=== PATIENT | female | born 1985 | race Caucasian/White ===

== ENCOUNTER 2016-12-18 09:19 | Emergency (ER) | payer OTHER ==
[~2016-12-18] VITALS: Ht 165.1 cm; Wt 104.5 kg
[~2016-12-18 09:19] MED LIST: ALBU18HF INH; ALBU2.5V4 IH; ARIP2TAB10 PO; ESTR1TAB24 PO; HYDR-4003 PO; HYDR12.55 PO; IBUP-1827 PO; IMI100 PO; LAMO200T2 PO; METH-313 PO; MONT10TA20 PO; OMEP-113 PO; OXYC-245 PO; PRAZ1CAP2 PO; SUMA4KIT SQ; SYMINH IH; TOPI25TA26 PO; TRAM50TA2 PO; TRAZ-118 PO
[2016-12-18 09:20] VITALS: BP 123/85; PULSE 83; RESP 18; O2SAT 95
--- NOTE | 2016-12-18 09:35 | ED.REPORT ---
HPI-Abd Pain F Under 40 Date of Service Dec 18, 2016 ED Provider: Aayush Lofton MD The patient is a 31 year old female with history of chronic back pain, chronic pelvic pain, seizures on lamotrigine and Topamax, asthma, and syncope related to hypotension, who presents to the emergency department complaining of severe right flank pain that began 1 week ago. Her pain has been intermittent since onset. Her pain has worsened since onset. She has also noticed "sharp" suprapubic abdominal pain and diaphoresis. She has not experienced similar symptoms in the past. She denies fever, chills, dysuria, hematuria, vaginal bleeding, bloody stools, bloody emesis, constipation or diarrhea. She denies history of kidney stones. She also mentions that she has been sick for the last year. She has experienced myalgias, difficulty sleeping, nausea, vomiting, nasal congestion, cough with green sputum, and difficulty breathing. She reports she was around mold a lot. She has been in the hospital 4 times in the last 8 months. She was recently seen by her regular doctor who did not want to do any blood work. She was last treated with antibiotics about 4 months ago. Nursing Notes Stated Complaint: SICK/STOMACH,VAGINA,BACK PAIN Chief Complaint: Female Abdominal Pain Nursing Notes Reviewed: Yes Allergies: Coded Allergies: baclofen (Verified Allergy, Intermediate, Nausea,Vomiting, 11/12/15) Scheduled Albuterol HFA (Proair HFA) 8.5 Gm Hfa.aer.ad 2 PUFFS INHALATION Q4H Albuterol Neb Soln (Albuterol Neb Soln) 2.5 Mg/3 Ml Vial.neb 3 MG IH TID Aripiprazole (Abilify) 2 Mg Tablet 0 PO DAILY Azithromycin (Zithromax (Z-Jamaal)) 250 Mg Tablet 250 MG PO DIRECTED Take two tablets by mouth on day 1, then take one tablet daily on days 2 through 5. Budesonide/Formoterol 160-4.5 mcg Inh (Symbicort 160-4.5 mcg Inh) 1 Puff Inha 1 PUFF IH BID Estradiol (Estradiol) 1 Mg Tablet 1.5 MG PO DAILY Hydrochlorothiazide (Hydrochlorothiazide) 12.5 Mg Tablet 12.5 MG PO DAILY Lamotrigine (Lamotrigine) 200 Mg Tablet 200 MG PO HS Montelukast (Singulair) 10 Mg Tablet 10 MG PO HS Omeprazole Magnesium (Omeprazole) 20 Mg Capsule.dr 20 MG PO BIDLS Prazosin (Prazosin) 1 Mg Capsule 0 PO HS Prednisone (PredniSONE) 20 Mg Tablet 40 MG PO DAILY Topiramate (Topamax) 25 Mg Tablet 100 MG PO DAILY Trazodone (Trazodone) 100 Mg Tablet 200 MG PO HS Scheduled PRN Albuterol Sulfate (Ventolin HFA Inhaler) 200 Puff/18 Gm Inhaler 1 PUFF INH Q4 PRN PRN For Wheezing Hydrocodone-Acetaminophen 5-325 mg (Hydrocodone-Acetaminophen 5-325 mg) 1 Each Tablet 1 TABLET PO Q4H PRN PRN For Pain Ibuprofen (Ibuprofen) 600 Mg Tablet 600 MG PO TIDWM PRN PRN For Pain Methocarbamol (Robaxin-750) 750 Mg Tablet 750 MG PO QID PRN PRN For Spasm Oxycodone HCl/Acetaminophen (Percocet 10-325 mg Tablet) 1 Each Tablet 1 EACH PO Q6HR PRN PRN For Pain Sumatriptan (Imitrex) 100 Mg Tablet 100 MG PO PRN PRN PRN HEADACHE Tramadol (Tramadol) 50 Mg Tablet 50 MG PO Q6HR PRN PRN For Pain Miscellaneous Medications Sumatriptan Succinate (Imitrex) 4 Mg/0.5 Ml Cartridge 4 MG SQ General Time Seen by MD: 09:28 Chief Complaint Flank pain right Hx Obtained From: Patient Arrived By: Walk-in Sudden in Onset?: No Onset Occurred: 1 week ago Symptom Duration: Since onset Progression since Onset: Constant, Gradually worsening Location: : Flank right: Suprapubic Quality: Painful, Sharp Severity: Current: Severe Severity: Maximum: Severe Recent Healthcare: No recent doctor visit, No recent hospitalization Similar Sx Previous: No Risk Factors PERC Rule All PERC criteria "No", PERC rule satisfied Past Medical History Past Medical History Asthma Chronic back pain Hx of seizures, currently on medication Hx of syncopal episodes related to low blood pressure Chronic pelvic pain Abnormal uterine bleeding Depression Past Surgical History Hysterectomy 10/29/14 for abnormal vaginal bleeding and pain since she started her menses. BSL Cystoscopy of bladder Family History CHF. Her grandmother had a pacemaker placed in her 20s. Smoking History Current Some Day Smoker, Light Tobacco Smoker Social History Alcohol Use: Denies alcohol use Drug Use: Denies drug use Other Social History: Good social support, , Local resident Ambulatory Status Independent Review of Systems Review of Systems Note: +difficulty sleeping Respiratory: Reports: Prod cough, green, Shortness of breath GI: Reports: Abdominal pain, Nausea, Vomiting, Denies: Bloody/tarry stool, Constipation, Diarrhea, Hematemesis, Hematochezia , Melena Female: Reports: Flank pain, Denies: Dysuria, Hematuria, Vaginal bleeding - abnl Musculoskeletal: Reports: Extremity swelling (chronic), Myalgia Complete sys rev & neg: except as marked. Ears / Nose / Throat: Reports: Nasal congestion Skin: Reports Diaphoresis Physical Exam Initial Vital Signs Vital Signs (First) Date Time Temp Pulse Resp B/P Pulse Ox O2 Delivery O2 Flow Rate FiO2 12/18/16 09:20 36.3 83 18 123/85 95 Room Air Initial VS: Reviewed Head / Eyes: Atraumatic, Normocephalic, PERRL ENT: Mucous membranes moist, Conjunctiva normal, No scleral icterus Neck: Supple, Non-tender, Full range of motion Lymphatic: No lymphadenopathy Extremities: Vascular intact, Neuro intact, No swelling, No tenderness Skin: Warm, Dry, No cyanosis Neurologic: Alert, Oriented, Nonfocal Psychiatric: Mood/affect normal, Behavior normal, Normal thought content General/Constitutional: Awake, Alert, Cooperative Respiratory / Chest: Breath sounds = bilat, No respiratory distress, No rales, No rhonchi Wheezing / Retractions: Positive: Wheezing mild (diffuse) Cardiovascular: Heart rate NL, Regular rhythm, Heart sounds NL, No gallop, No murmurs, No rubs, Peripheral circulation NL Abdomen: Soft, No guarding, No rebound, BS normoactive, No distention, No hernia, No palpable mass, No pulsatile mass Tenderness/Guarding/Rebound: Positive: Tender RUQ... Back: No midline vertebral tend, No CVA tenderness Diffuse back pain Interpretation & Diagnostics Interpretation & Diagnostics: Abdominal US: negative Lab Results Interpretation Result Diagram: 12/18/16 1110 12/18/16 1110 Test 12/18/16 11:10 White Blood Count 5.6th/mm3 (3.8-10.1) Red Blood Count 4.25mil/mm3 (3.90-5.20) Hemoglobin 13.0g/dL (12.0-15.6) Hematocrit 39.5% (35.0-46.0) Mean Corpuscular Volume 92.9fL (81-100) Mean Corpuscular Hemoglobin 30.6pg (27.0-35.0) Mean Corpuscular Hemoglobin Concent 32.9% (32.0-37.0) Red Cell Distribution Width 12.8% (12.3-15.4) Platelet Count 271bil/L (150-400) Neutrophils (%) (Auto) 41.9% (40-74) Lymphocytes (%) (Auto) 50.1% (14-46) Monocytes (%) (Auto) 3.7% (4-12) Eosinophils (%) (Auto) 3.4% (0-5) Basophils (%) (Auto) 0.9% (0-3) Hold Blue Top Tube Received (Received) Sodium Level 140mEq/L (134-144) Potassium Level 4.7mEq/L (3.5-5.2) Chloride Level 105mEq/L (97-108) Carbon Dioxide Level 21mmol/L (18-29) Blood Urea Nitrogen 11mg/dL (6-20) Creatinine 0.41mg/dL (0.57-1.00) Estimat Glomerular Filtration Rate 256mL/min (>59) Glucose Level 93mg/dL (60-99) Calcium Level 9.2mg/dL (8.5-10.1) Magnesium Level 1.8mg/dL (1.6-2.6) Total Bilirubin 0.3mg/dL (0.0-1.2) Aspartate Amino Transf (AST/SGOT) 18U/L (0-50) Alanine Aminotransferase (ALT/SGPT) 15U/L (0-32) Alkaline Phosphatase 78U/L (25-150) Total Protein 6.2g/dL (6.4-8.4) Albumin 4.0g/dL (3.4-5.0) Lipase 84U/L (13-60) Hold Red Top Tube Received (Received) Hold Cortes Top Tube Received (Received) ECG Interpretation ECG Interpretation: Sinus rhythm with a rate of [address] T changes Time: 10:50 Interpreted by: ED physician X-Ray Chest Interpretation View: Portable, 1 view Interpretation / Wet Read by: Wet read ED physician NL X-Ray Chest Findings: No infiltrate, No acute disease Re-Eval/Medical Decision Med Decision/Clinical Course Med Decision/Clinical Course: 31-year-old female presenting complaining of cough times month and abdominal pain times months. Coughing up green sputum. I will send stable. Mild right upper quadrant tenderness. No peritoneal signs. Labs are stable. Urine negative for infection or blood. Right upper quadrant ultrasound is normal with no gallstones or other acute pathology. Chest x-ray no pneumonia on my wet read. We will treat for bronchitis with steroids and Z-Jamaal and inhaler as needed. Return precautions regarding abdominal pain that resolved without intervention here.. Recommend primary doctor 2-3 days. Source of Hx: Old records Re-Evaluation/Progress : Time of Eval: 12:23 Re-Evaluation/Progress Note: Discussed results, diagnosis, and plan for discharge. All questions were addressed. Counseled Regarding: Diagnosis, Lab results, Need for follow-up, When/why to return to ED Discharge & Departure Primary Impression: Bronchitis Additional Impression: Abdominal pain Disposition: Home Discharge Condition All VS Reviewed: Yes Condition: Stable Patient Instructions: Acute Bronchitis (ED) Additional Instructions: Thank you for entrusting us with your care today. Your labs, chest x-ray, and abdominal ultrasound today are reassuring. Take the antibiotics, steroids, and the inhaler as prescribed. Followup with your regular doctor at the end of this week or early next week for re-evaluation. Please return to the emergency department for any worsening abdominal pain, fevers, vomiting, or other concerning symptoms. Referrals: Darryn Shay MD (PCP) [facility] Attestation Portions of this note were transcribed by Afia Templeton. I, Dr. Lofton personally performed the history, physical exam and medical decision-making; I reviewed and confirmed the accuracy of the information in the transcribed note. Signed by: Dewayne Hammond, 12/18/2016 at 1230. copies to: Darryn Shay MD, Ben M MD Dec 18, 2016 09:35 Afia Templeton Dec 18, 2016 09:36
[2016-12-18] MEDS ORDERED: Albuterol 2.5 mg/3 mL Inhalation Solution NEB ONE (10:35)
[2016-12-18 10:46] VITALS: PULSE 87; RESP 18; O2SAT 99
[2016-12-18 11:19] LABS: BASOPHILS % (AUTO) 0.9 % (0-3); EOSINOPHILS % (AUTO) 3.4 % (0-5); MONOCYTES % (AUTO) 3.7 % (4-12); Mean Corpuscular Hemoglobin 30.6 pg (27.0-35.0); Mean Corpuscular Volume 92.9 fL (81-100); NEUTROPHILS % (AUTO) 41.9 % (40-74); Platelet Count 271 bil/L (150-400)
[2016-12-18 11:46] LABS: Magnesium 1.8 mg/dL (1.6-2.6)
--- NOTE | 2016-12-18 12:20 | DRSVH ---
PROCEDURE: X-RAY CHEST ONE VIEW, PORTABLE ([id number]) INDICATIONS: dyspnea TECHNIQUE: One view of the chest was acquired. COMPARISON: None. FINDINGS: Surgical changes and devices: None. Lungs and pleura: No pleural effusions or pneumothorax. Lungs are clear. Mediastinum: Mediastinal contours appear normal. Heart size is normal. Bones and chest wall: No suspicious bony lesions. Overlying soft tissues appear unremarkable. IMPRESSION: No acute cardiopulmonary disease. Dictated by: Wilfrido Kwok [facility] Interpreted: Liliana Olea MD on 12/18/2016 at 12:19 Transcribed by: MARLENI on 12/18/2016 at 12:19 Approved by: Liliana Olea MD, PhD on 12/19/2016 at 11:00
[2016-12-18] MEDS ORDERED: ALBU8.5H2 INHALATION (12:25)
[2016-12-18] MEDS ORDERED: PRE20 PO (12:25)
[2016-12-18] MEDS ORDERED: AZIT250T4 PO (12:25)
[2016-12-18 12:38] VITALS: BP 137/100; PULSE 84; O2SAT 97
--- NOTE | 2016-12-18 12:45 | DRSVH ---
PROCEDURE: US ABDOMEN INDICATIONS: RUQ pain TECHNIQUE: Real-time scanning was performed of the abdominal and retroperitoneal organs, with image documentatio n. COMPARISON: None. FINDINGS: Liver length: 17.15 cm Gallbladder Wall Thickness: 2.20 mm CBD: 3.40 mm Spleen length: 11.43 cm Right kidney length: 9.62 cm Left kidney length: 10.55 cm Aorta(Proximal): 1.97 cm Aorta(Mid): 1.55 cm Aorta(Distal): 1.56 cm RCIA: 9.40 mm LCIA: 1.15 cm Liver: Liver is diffusely increased in echogenicity. No focal hepatic abnormalities identified. No rmal hepatic size. Gallbladder: Normal gallbladder. Biliary ducts: Intrahepatic bile ducts are non-dilated. Extrahepatic bile duct caliber is normal. Normal is 6-7 mm or less in diameter, or 10 mm or less post-cholecystectomy. Pancreas: Visualized portions of the pancreas are sonographically normal. Spleen: Spleen is normal in size and homogeneous in echotexture. Kidneys: Kidneys are normal in size and echotexture. No hydronephrosis or nephrolithiasis. No kofi d masses. Aorta: Visualized aorta is normal in caliber at less than 3 cm. Iliacs: Proximal common iliac arteries are normal in caliber at less than 2.5 cm. IVC: Intrahepatic inferior vena cava is patent. Miscellaneous: No free abdominal fluid. IMPRESSION: Increased hepatic echogenicity noted likely related to fatty infiltration of the liver b ut other sources of hepatocellular disease cannot be excluded. Recommend clinical correlation. Dictated by: Wilfrido Kwok [facility] Interpreted: Liliana Olea MD on 12/18/2016 at 12:44 Transcribed by: MARLENI on 12/18/2016 at 12:45 Approved by: Liliana Olea MD, PhD on 12/19/2016 at 11:00
[2016-12-18 22:11] LABS: APPEARANCE,URINE CLEAR (CLEAR,HAZY); COLOR,URINE YELLOW (YELLOW); OCCULT BLOOD,URINE NEGATIVE (NEGATIVE); PH,URINE 6.5 (5.0-8.0); UROBILINOGEN,URINE NORMAL (NORMAL)
== END 2016-12-18 12:25 | disposition home or self-care (01) ==
LOC: SED 09:19
DX: J40 Bronchitis, not specified as acute or chronic (principal); R10.11 Right upper quadrant pain; M79.1 Myalgia; R11.2 Nausea with vomiting, unspecified; R09.81 Nasal congestion; R56.9 Unspecified convulsions; J45.909 Unspecified asthma, uncomplicated; F17.200 Nicotine dependence, unspecified, uncomplicated; Z88.8 Allergy status to other drugs, medicaments and biological substances
CPT/HCPCS: 36415; 71010; 76700; 80053; 81000; 83690; 83735; 85025; 93005; 94664; 96372; 99285; J7613